=== PATIENT | male | born 1970 | race Caucasian/White ===

== ENCOUNTER 2023-08-21 14:05 | Emergency (ER) | payer BC, SELFPAY ==
[2023-08-21 14:09] VITALS: BP 112/75; BMI 28.7
[2023-08-21 15:00] VITALS: BP 109/77
--- NOTE | 2023-08-21 15:29 | ED.GENMED ---
History of Present Illness
General
Chief Complaint: Cardiac Symptoms
Source: patient
Exam Limitations: none
Time Seen by Provider: 08/21/23 14:57
Nursing documentation reviewed up to this point in time: agreed with
Travel History
Have you had any contact with someone who has COVID-19?: No
Do you have any symptoms of coronavirus? Fever > 100 degrees, chills, cough, shortness of breath, sore throat, loss of taste or smell, muscle aches, or headache?: No
History of Present Illness
History of Present Illness:
Patient presents to ED secondary to sudden onset of chest palpitations associated with dizziness, shortly after dinner last night around 8 PM. Denies chest pain. Denies shortness of breath. Denies nausea. Denies diaphoresis. Denies passing out.
Denies headache. Denies blurred vision. Denies recent illness. Denies recent travel or surgery. Denies back pain. Denies leg pain or swelling. Denies recent travel or surgery. Denies previous history of similar symptoms. Patient states that
he has had intermittent chest palpitations in the past, but never lasted this long or with symptoms. Patient does have history of alcohol abuse in the past, but he has been sober for a number of years. Denies cardiac history. Of note, patient
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 Patient is currently no longer taking any blood thinning medications.
Review of Systems
Review of Systems
Allergies reviewed?: Yes
All Other Systems: ROS reviewed and negative except as documented in HPI and ROS
Constitutional: Reports no symptoms
EENT: Reports no symptoms
Respiratory: Reports no symptoms
Cardiac: Reports palpitations
ABD/GI: Reports no symptoms
: Reports no symptoms
Musculoskeletal: Reports no symptoms
Skin: Reports no symptoms
Neurological: Reports dizzy; Denies headache or weakness
Phy Exam
Physical Exam
Physical Exam:
Physical Exam
General: mild distress, not acutely ill. afebrile
Head: nc/at. eomi
Neck: supple. no meningeal signs.
Heart: irregularly irregular, tachycardic, no murmur. equal radial pulses.
Lungs: no acute respiratory distress. clear bilaterally
Abdomen: normal bowel sounds. not tender.
Neuro: alert and oriented. no focal neurological deficits
Skin: no rash
Psychiatric: well kept. interactive and cooperative
Extremities: no edema. no calf tenderness.
Scores
[id number] Score for Afib Stroke Risk
Age in Years (65=0, 65-74=1, >/=75=2): <65
Sex (Female=+1): Male
Congestive Heart Failure History (Yes=+1): No
Hypertension History (Yes=+1): No
Stroke/TIA/Thromboembolism History (Yes=+2): No
Vascular Disease History (Yes=+1): No
Diabetes Mellitus (Yes=+1): No
Score: 0
Anticoagulation Recommendations: Anticoagulation not indicated (as validated in nonvalvular afib). Consider anticoagulation irrespective of score in patients with HCM
Course
Orders/Labs/Results
Orders:
Orders
08/21/23 14:08
EKG [Electrocardiogram (*1)] Urgent
Reason for Study: Tachycardia
EKG- Treatment ONCE
08/21/23 15:27
0.9% Sodium Chloride 500 ml [Nss] 500 ml IV BOLUS
Diltiazem HCl [Cardizem] 10 mg IV NOW STA
08/21/23 15:30
Diltiazem 125 mg/125 ml Nss [Cardizem] 125 mg in 125 ml IV PER PROTOCOL
Initial dose in mg/hr, then titrate:: 5
Titrate to keep:: Heart rate 80-100 bpm
Titrate by mg/hr:: 5 mg/hr
Frequency of titrations (minutes):: 15
Maximum dose in mg/hr:: 15
08/21/23 15:31
Complete Blood Count/No Diff Urgent
Complete Blood Count/With Diff Urgent
Comprehensive Metabolic Panel Urgent
Comment: CMP ADDED ON BY FLOOR 4:20PM 08-20-24
D-Dimer Urgent
Magnesium Urgent
TSH Urgent
Troponin I Urgent
08/21/23 16:20
Add On- LAB Urgent
Tests Added?: cmp
08/21/23 17:52
Metoprolol [Lopressor] 25 mg PO NOW STA
Abnormal Lab Results
08/21/23
15:31
Monocytes % 9.8 H %
(1.7-9.3)
08/21/23 15:31
08/21/23 15:31
Vital Signs
Initial and Last Documented VS:
Initial Vital Signs
Temp Pulse Resp BP Pulse Ox
98.5 F 77 16 112/75 98
08/21/23 14:09 08/21/23 14:09 08/21/23 14:09 08/21/23 14:09 08/21/23 14:09
Last Documented Vital Signs
Temp Pulse Resp BP Pulse Ox
98.5 F 77 18 101/78 99
08/21/23 14:09 08/21/23 19:00 08/21/23 19:00 08/21/23 16:00 08/21/23 16:45
MDM/Problems Addressed
MDM/Problems Addressed:
Patient started on IV fluids, Cardizem bolus with infusion afterwards. Heart rate improved with subjective improvement in patient's overall symptoms.
Discussed with Dr. Fernandez, cardiology, including blood work, EKG, and his risk factors for potential anticoagulation. Does not feel the patient needs anticoagulation at this time, but does recommend starting patient on metoprolol succinate 25
mg nightly, along with outpatient cardiology evaluation.
Patient expresses understanding at time of discharge.
Critical care statement: A total of 40 minutes of critical care time was provided for this patient. This includes management of unstable vital signs, evaluation of the patient at bedside, reviewing the patient's pertinent medical records, discussion
with consultants, review of old EKGs and review of pertinent medical records. This time with separate from time utilized to perform the aforementioned documented procedures
*EKG
Interpreted by ED Provider?: Yes
EKG Intrepretation Date: 08/21/23
Heart Rate: 123
Rate: tachycardiac
Rhythm: a-fib
[place]: normal axis
Interval: normal interval
*Critical Care Note
Total Time (30-74mins, 75-104mins- exclusive of procedures): 40 min
ED Attending Note
-
Portions of this chart may have been created with voice recognition software.� Occasional wrong word or��sound alike� substitutions may have occurred due to the inherent limitations of voice recognition software.
Discharge Plan
Departure
Patient Disposition: Home (Routine Discharge)
Date of Disposition: 08/21/23
Time of Disposition: 18:45
Patient with high blood pressure during this ER visit?: No
Condition: Good
Discharge Problem:
Atrial fibrillation
Instructions: Atrial Fibrillation (DC)
Prescriptions:
New
metoprolol succinate 25 mg tablet extended release 24 hr
25 mg PO HS Qty: 30 0RF
Referrals:
Tim Cha MD [Family Provider] -
Activity Restrictions/Additional Instructions:
As discussed, please follow-up with referred terminologist for further evaluation and treatment. Your prescription has been sent electronically to [facility] pharmacy in [place].
Interventions
Interventions:
*Risk Screen - Suicide Last Done: 08/21/23 14:09
*General Assessment Last Done: 08/21/23 14:54
*Neglect/Abuse Screening Last Done: 08/21/23 14:09
ED- Fall Risk Assessment Last Done: 08/21/23 14:54
*ED COVID-19 Vaccine History Last Done: 08/21/23 14:09
*Nursing Disposition Last Done: 08/21/23 19:06
ED- Pulmonary Assessment Last Done: 08/21/23 14:54
ED- Cardiac Assessment Last Done: 08/21/23 14:54
Discharge Date and Time
Discharge Date/Time: 08/21/23 19:06
Print Language: [id number]
[2023-08-21] MEDS: CARDIZEM 10 MG IV (15:41)
[2023-08-21] MEDS: NSS 500 IV (15:41)
[2023-08-21] MEDS: CARDIZEM 125 IV (15:42)
[2023-08-21 15:45] LABS: % Basophils 1.1 % (0-2); % Eosinophils 1.3 % (0-6); % Immature Granulocytes 0.5 % (0-0.5); % Lymphocytes 24.8 % (20.5-51.1); % Monocytes 9.8 % (1.7-9.3); % Neutrophils 62.5 % (42.2-75.2); Absolute Basophils 0.1 10^3/uL (0-0.2); Absolute Eosinophils 0.1 10^3/uL (0-0.7); Absolute Lymphocytes 1.6 10^3/uL (1.2-3.4); Absolute Monocytes 0.6 10^3/uL (0.1-0.6); Absolute Neutrophils 3.9 10^3/uL (1.4-6.5); Hematocrit 44.6 % (39.0-52.0); Hemoglobin 15.1 g/dL (13.0-18.0); Mean Corp Hgb Conc. 33.9 g/dL (33.0-37.0); Mean Corpuscular Volume 88.5 fL (80.0-94.0); Mean Platelet Volume 9.6 fL (7.4-10.4); Nucleated Red Blood Cells % 0 % (-); Platelet Count 266 10^3/uL (130-400); Red Blood Cell Count 5.04 10^6/uL (4.70-6.10); Red Cell Dist. Width 12.7 % (11.5-14.5); White Blood Cell Count 6.2 10^3/uL (4.8-10.8)
[2023-08-21 15:57] LABS: D-Dimer 0.32 ug/mlFEU (0.00-0.50)
[2023-08-21 16:00] VITALS: BP 101/78
[2023-08-21 16:05] LABS: Troponin I < 0.012 ng/ml
[2023-08-21 16:25] LABS: TSH 1.19 uIU/ml (0.47-4.68)
[2023-08-21 16:41] LABS: ALT (SGPT) 20 U/L (0-50); AST (SGOT) 22 U/L (17-59); Albumin 4.2 g/dl (3.5-5.0); Alkaline Phosphatase 52 U/L (38-126); Blood Urea Nitrogen 18 mg/dl (9-20); Calcium 9.3 mg/dl (8.4-10.2); Carbon Dioxide 25 mmol/L (22-30); Chloride 106 mmol/L (98-107); Estimated Creatinine Clearance 112 ml/min; Glucose 93 mg/dl (70-99); Potassium 4.6 mmol/L (3.5-5.1); Sodium 135 mmol/L (135-145); Total Bilirubin 0.5 mg/dl (0.2-1.3); Total Protein 6.5 g/dl (6.3-8.2); eGFR > 60.00
[2023-08-21] MEDS: LOPRESSOR 25 MG PO (17:58)
== END 2023-08-21 19:06 | disposition home or self-care (01) ==
LOC: EMR 14:05
PROVIDERS: EMERGENCY PHYSICIAN Emergency Medicine; FAMILY PHYSICIAN Internal Medicine
DX: I48.91 Unspecified atrial fibrillation (principal); R42 Dizziness and giddiness; Z79.899 Other long term (current) drug therapy
CPT/HCPCS: 99283; 96374; 96376; 96361; 80053; 83735; 84443; 84484; 85025; 85027; 85379; 93005

== ENCOUNTER → 2023-09-10 10:28 | Outpatient (REF) | payer BC, SELFPAY | LOC: RCS 10:28 | PROVIDERS: ATTENDING PHYSICIAN Internal Medicine Cardiovascular Disease; FAMILY PHYSICIAN Internal Medicine | DX: R07.2 Precordial pain (principal) | CPT/HCPCS: 93017; 93350 ==

== ENCOUNTER → 2023-09-17 07:22 | Outpatient (REF) | payer BC, SELFPAY | LOC: HWRCS 07:22 | PROVIDERS: ATTENDING PHYSICIAN Internal Medicine Cardiovascular Disease; FAMILY PHYSICIAN Internal Medicine | DX: I48.0 Paroxysmal atrial fibrillation (principal) | CPT/HCPCS: 93306 ==